=== PATIENT | male | born 1995 | race African-American/Black ===

== ENCOUNTER 2019-01-28 20:53 | Emergency (ER) | payer OTHER ==
[~2019-01-28] VITALS: Ht 177.8 cm; Wt 92.7 kg
[2019-01-28 21:58] LABS: BASO % 0.7 % (0.0-1.0); EOS # 0.1 10^3/uL (0.0-0.5); EOS % 2.1 % (0.0-3.0); HEMATOCRIT 47.1 % (42.0-52.0); HEMOGLOBIN 16.1 g/dl (13.5-17.5); LYMPH % 34.4 % (24.0-44.0); MEAN CORPUSCULAR HEMOGLOBIN 30.1 pg (27.0-33.0); MEAN CORPUSCULAR HGB CONC 34.2 g/dl (32.0-36.5); MONO # 0.5 10^3/uL (0.0-0.8); MONO % 8.7 % (0.0-5.0); NEUTROPHILS # 3.1 10^3/uL (1.5-8.5); NEUTROPHILS % 53.9 % (36.0-66.0); PLATELET COUNT, AUTOMATED 249 10^3/uL (150-450); RED BLOOD COUNT 5.35 10^6/uL (4.30-6.10); WHITE BLOOD COUNT 5.7 10^3/uL (4.0-10.0)
[2019-01-28] MEDS ORDERED: KETOROLAC 30 MG/ML VIAL (J1885) IV ONE (22:15)
[2019-01-28] MEDS ORDERED: NS 1,000 ML IV ONE (22:15)
[2019-01-28] MEDS ORDERED: TAMSULOSIN 0.4 MG CAP PO ONE (22:15)
--- NOTE | 2019-01-28 23:11 | REPVR ---
PROCEDURE INFORMATION: Exam: CT Abdomen And Pelvis Without Contrast Exam date and time: 01/28/2019 10:27 PM Clinical history: 23 years old, male; Other: Hematuria; Additional info: Hematuria, dysuria TECHNIQUE: Imaging protocol: Computed tomography of the abdomen and pelvis without contrast. Radiation optimization: All CT scans at this facility use at least one of these dose optimization techniques: automated exposure control; mA and/or kV adjustment per patient size (includes targeted exams where dose is matched to clinical indication); or iterative reconstruction. COMPARISON: No relevant prior studies available. FINDINGS: Limited evaluation without enteric or IV contrast. Lungs: No suspicious mass or airspace process in the visualized lung bases. Liver: Noncontrast liver shows no obvious lesion. Gallbladder and bile ducts: Gallbladder is contracted and not well evaluated. Pancreas: Noncontrast pancreas shows no obvious mass or adjacent fluid. Spleen: Noncontrast spleen shows no obvious focal deformity. Adrenals: Adrenal glands are normal in appearance. Kidneys and ureters: Kidneys show no stone or hydronephrosis. Stomach and bowel: No evidence of small bowel obstruction. No evidence of acute diverticulitis. Appendix: Normal caliber appendix is identified, with no adjacent inflammation. Intraperitoneal space: No pneumoperitoneum. Vasculature: No aortic aneurysm. Lymph nodes: No bulky lymphadenopathy. Bladder: Urinary bladder appears normal. Bones/joints: Bony structures show no acute fracture or destructive process. Soft tissues: Fat containing umbilical hernia is present. No effacement of normal fat planes in the ischiorectal fossa. IMPRESSION: No evidence of renal stone or obstruction. No noncontrast CT explanation for hematuria Electronically signed by: Drake Reid On 01/28/2019 23:10:44 PM
[2019-01-28 23:40] VITALS: BP 165/73
[2019-01-29 00:44] LABS: CHLAMYDIA DNA AMPLIFICATION NEGATIVE (NEGATIVE); GC DNA AMPLIFICATION NEGATIVE (NEGATIVE)
== END 2019-01-28 23:49 | disposition home or self-care (01) ==
LOC: M ED 20:53
DX: R31.21 Asymptomatic microscopic hematuria (principal)
CPT/HCPCS: 74176; 80047; 81001; 85025; 87661; 96361; 96374; 99284; J1885

== ENCOUNTER 2019-05-28 06:44 | Emergency (ER) | payer OTHER ==
[~2019-05-28] VITALS: Ht 180.3 cm; Wt 88.6 kg
[2019-05-28 07:28] LABS: APPEARANCE, URINE CLEAR (CLEAR); BACTERIA, URINE AUTO NEGATIVE (NEGATIVE); BILIRUBIN, URINE AUTO NEGATIVE (NEGATIVE); BLOOD, URINE BLOOD 1+ (NEGATIVE); COLOR, URINE YELLOW (YELLOW); GLUCOSE, URINE (UA) AUTO NEGATIVE (NEGATIVE); KETONE, URINE AUTO NEGATIVE (NEGATIVE); LEUKOCYTE ESTERASE, URINE AUTO NEGATIVE (NEGATIVE); NITRITE, URINE AUTO NEGATIVE (NEGATIVE); PROTEIN, URINE AUTO NEGATIVE (NEGATIVE); RBC, URINE AUTO 6 /HPF (0-3); SPECIFIC GRAVITY URINE AUTO 1.014 (1.002-1.035); SQUAMOUS EPITHELIAL CELL UR AU 0 /HPF (0-6); UROBILINOGEN, URINE AUTO 0.2 mg/dL (0.0-2.0); WBC, URINE AUTO 0 /HPF (0-3)
[2019-05-28 11:02] LABS: BASO % 0.5 % (0.0-1.0); EOS # 0.1 10^3/uL (0.0-0.5); EOS % 1.9 % (0.0-3.0); HEMATOCRIT 44.7 % (42.0-52.0); HEMOGLOBIN 15.4 g/dl (13.5-17.5); LYMPH # 1.2 10^3/uL (1.5-5.0); LYMPH % 31.5 % (24.0-44.0); MEAN CORPUSCULAR HEMOGLOBIN 30.4 pg (27.0-33.0); MEAN CORPUSCULAR HGB CONC 34.5 g/dl (32.0-36.5); MEAN CORPUSCULAR VOLUME 88.2 fl (80.0-96.0); MONO # 0.4 10^3/uL (0.0-0.8); NEUTROPHILS # 2.1 10^3/uL (1.5-8.5); NEUTROPHILS % 56.1 % (36.0-66.0); PLATELET COUNT, AUTOMATED 253 10^3/uL (150-450); RED BLOOD COUNT 5.07 10^6/uL (4.30-6.10); WHITE BLOOD COUNT 3.7 10^3/uL (4.0-10.0)
[2019-05-28 11:22] LABS: BLOOD UREA NITROGEN 15 MG/DL (7-18); CALCIUM LEVEL 9.6 MG/DL (8.5-10.1); CARBON DIOXIDE LEVEL 31 MEQ/L (21-32); CHLORIDE LEVEL 104 MEQ/L (98-107); CREATININE FOR GFR 1.01 MG/DL (0.70-1.30); GLOMERULAR FILTRATION RATE > 60.0 (>60); GLUCOSE, FASTING 86 MG/DL (70-100); POTASSIUM SERUM 4.4 MEQ/L (3.5-5.1); SODIUM LEVEL 140 MEQ/L (136-145)
[2019-05-28] MEDS ORDERED: NS 1,000 ML IV ONE (11:45)
[2019-05-28] MEDS ORDERED: ISOVUE-370 76% 100ML VIAL (Q9967) As Ordered ONE (12:00)
--- NOTE | 2019-05-28 12:51 | REP ---
Clinical: Persistent hematuria. Technique: Axial precontrast, contrast enhanced, and delayed images of the abdomen and pelvis using 100 ml Isovue 370 intravenous contrast material with coronal and sagittal re-formations. Volume rendered 3-D urogram obtained. Findings: Urinary tract system including kidneys, ureters, and bladder are normal. Liver, spleen, pancreas, gallbladder, bilateral adrenal glands are normal. The enteric system is without obstruction or acute inflammatory process. Eventration of the rectus sheath at the periumbilical level noted without herniation. Pelvis demonstrates normal bladder and age appropriate prostate/seminal vesicles. No ascites. No free air. No adenopathy. Abdominal aorta and vasculature normal. Surrounding musculoskeletal structures are intact. Lung bases are clear. Impression: No acute abdominopelvic pathology appreciated. Electronically Signed by Sam Long MD 05/28/2019 12:43 P
[2019-05-28 14:24] VITALS: BP 133/84
== END 2019-05-28 14:27 | disposition home or self-care (01) ==
LOC: M ED 06:44
DX: R31.29 Other microscopic hematuria (principal)
CPT/HCPCS: 74178; 80048; 81001; 85025; 87086; 99284; Q9967

== ENCOUNTER 2019-08-23 22:23 | Emergency (ER) | payer OTHER ==
[~2019-08-23] VITALS: Ht 177.8 cm; Wt 90.2 kg
[2019-08-23] MEDS ORDERED: PERC5TAB12 PO (22:37)
[2019-08-23] MEDS ORDERED: MORPHINE 4 MG/ML 1ML VIAL/SYRINGE (J2270) IV ONE ×2 (23:00→23:30)
[2019-08-23] MEDS ORDERED: NS 1,000 ML IV ONE (23:00)
[2019-08-23] MEDS ORDERED: ONDANSETRON 4MG/2ML VIAL IV ONE (23:00)
[2019-08-23 23:07] LABS: BASO % 0.2 % (0.0-1.0); EOS % 0.1 % (0.0-3.0); HEMATOCRIT 42.1 % (42.0-52.0); HEMOGLOBIN 14.6 g/dl (13.5-17.5); LYMPH # 1.2 10^3/uL (1.5-5.0); LYMPH % 12.9 % (24.0-44.0); MEAN CORPUSCULAR HEMOGLOBIN 30.4 pg (27.0-33.0); MEAN CORPUSCULAR HGB CONC 34.7 g/dl (32.0-36.5); MEAN CORPUSCULAR VOLUME 87.5 fl (80.0-96.0); MONO # 0.7 10^3/uL (0.0-0.8); MONO % 7.9 % (0.0-5.0); NEUTROPHILS # 7.1 10^3/uL (1.5-8.5); NEUTROPHILS % 78.6 % (36.0-66.0); PLATELET COUNT, AUTOMATED 239 10^3/uL (150-450); RED BLOOD COUNT 4.81 10^6/uL (4.30-6.10); WHITE BLOOD COUNT 9.1 10^3/uL (4.0-10.0)
[2019-08-23 23:24] LABS: ALBUMIN 4.1 GM/DL (3.2-5.2); BILIRUBIN,DIRECT 0.1 MG/DL (0.0-0.2); BILIRUBIN,TOTAL 0.3 MG/DL (0.2-1.0); TOTAL PROTEIN 8.2 GM/DL (6.4-8.2)
--- NOTE | 2019-08-23 23:52 | REPVR ---
PROCEDURE INFORMATION: Exam: CT Abdomen And Pelvis Without Contrast Exam date and time: 08/23/2019 11:20 PM Age: 24 years old Clinical indication: Abdominal pain; Additional info: Left flank pain, hematuria, cystoscopy yesterday TECHNIQUE: Imaging protocol: Computed tomography of the abdomen and pelvis without contrast. Radiation optimization: All CT scans at this facility use at least one of these dose optimization techniques: automated exposure control; mA and/or kV adjustment per patient size (includes targeted exams where dose is matched to clinical indication); or iterative reconstruction. COMPARISON: CT ABD PELVIS W/O CONTRAST 01/28/2019 10:25 PM FINDINGS: Limitations: Examination is limited by motion artifact. Liver: Normal. No mass. Gallbladder and bile ducts: Normal. No calcified stones. No ductal dilation. Pancreas: Normal. No ductal dilation. Spleen: Normal. No splenomegaly. Adrenals: Normal. No mass. Kidneys and ureters: No right hydronephrosis. Mild left hydronephrosis. No renal stones. Stomach and bowel: Moderate stool in the colon. No abnormal bowel dilatation. No abnormal bowel wall thickening. Negative for colonic diverticulitis. Appendix: Appendix is normal. Intraperitoneal space: Unremarkable. No free air. No significant fluid collection. Vasculature: Unremarkable. No abdominal aortic aneurysm. Lymph nodes: Unremarkable. No enlarged lymph nodes. Bladder: Unremarkable as visualized. Reproductive: Prostate is mildly enlarged. Bones/joints: Unremarkable. No acute fracture. Soft tissues: Unremarkable. IMPRESSION: 1. Mild left hydronephrosis. Unknown etiology. Possible recently passed stone. 2. No renal stones. Electronically signed by: Yovani Gallego On 08/23/2019 23:51:33 PM
[2019-08-24 00:24] VITALS: BP 135/65
[2019-08-24] MEDS ORDERED: fentaNYL 100 MCG/2 ML INJECTION (J3010) IV ONE (00:30)
[2019-08-24] MEDS ORDERED: FLEET OIL RETENTION ENEMA PR STA (01:35)
[2019-08-24] MEDS ORDERED: NS 1,000 ML IV ONE (01:45)
[2019-08-24] MEDS ORDERED: KETOROLAC 30 MG/ML 1ML VIAL IV ONE ×2 (01:45→02:15)
[2019-08-24] MEDS ORDERED: KEFL500C17 PO (02:43)
== END 2019-08-24 03:04 | disposition home or self-care (01) ==
LOC: M ED 22:23
DX: K59.00 Constipation, unspecified (principal); N13.30 Unspecified hydronephrosis
CPT/HCPCS: 74176; 80047; 80076; 81001; 83605; 83690; 85025; 96361; 96374; 96375; 96376; 99284; J1885; J2270; J2405; J3010

== ENCOUNTER 2020-01-07 07:58 | Emergency (ER) | payer OTHER ==
[~2020-01-07] VITALS: Ht 177.8 cm; Wt 90.9 kg
[~2020-01-07 07:58] MED LIST: KEFL500C17 PO; PERC5TAB12 PO
--- NOTE | 2020-01-07 08:44 | REPVR ---
PROCEDURE INFORMATION: Exam: XR Left Ankle Exam date and time: 01/07/20 (8:22am) Age: 24 years old Clinical indication: Patient at [facility]. Twisted left ankle and it 'popped". Work-related. Initial encounter. Jumped and heard a 'pop'. TECHNIQUE: Imaging protocol: XR Left ankle Views: 3 or more views COMPARISON: No relevant prior studies available FINDINGS: Bones/joints: Unremarkable. No acute fracture nor dislocation. Soft tissues: Diffuse soft tissue swelling at the left ankle, most notably at the lateral malleolus. IMPRESSION: No acute fracture. No dislocation. Soft tissue swelling at the left ankle, most notably at the lateral malleolus. Electronically signed by: Suzan De La Cruz On 01/07/2020 08:44:00 AM
[2020-01-07 09:41] VITALS: BP 143/66
== END 2020-01-07 09:35 | disposition home or self-care (01) ==
LOC: M ED 07:58
DX: S93.402A Sprain of unspecified ligament of left ankle, initial encounter (principal); X58.XXXA Exposure to other specified factors, initial encounter; Y92.89 Other specified places as the place of occurrence of the external cause; Y93.89 Activity, other specified; Y99.1 Military activity

== ENCOUNTER 2020-02-06 00:29 | Emergency (ER) | payer OTHER ==
[~2020-02-06] VITALS: Ht 170.2 cm; Wt 89.9 kg
--- NOTE | 2020-02-06 04:12 | REPVR ---
PROCEDURE INFORMATION: Exam: US Retroperitoneal Limited, Kidneys Exam date and time: 02/06/2020 3:54 AM Age: 24 years old Clinical indication: Other: Hematuria; Additional info: Hematuria, prior history of cyst rupture TECHNIQUE: Imaging protocol: Real-time ultrasound of the retroperitoneum with image documentation. Examination was focused on the kidneys. COMPARISON: CT ABD PELVIS W/O CONTRAST 08/23/2019 11:17 PM FINDINGS: Right kidney: The right kidney is normal in size and echogenicity with no hydronephrosis or stones identified. The right kidney measures 11.3 cm in length. Left kidney: The left kidney is normal in size and echogenicity with no stones or hydronephrosis identified. The left kidney measures 11.1 cm in length. Bladder: The bladder appears normal. No bladder stones or wall thickening identified. Ureteral jets were sought but not identified. IMPRESSION: Normal appearance of the kidneys and bladder. No hydronephrosis or stones identified. Electronically signed by: Hortencia Gallego On 02/06/2020 04:12:21 AM
[2020-02-06 04:34] LABS: BLOOD UREA NITROGEN 14 MG/DL (7-18); CALCIUM LEVEL 9.6 MG/DL (8.5-10.1); CARBON DIOXIDE LEVEL 31 MEQ/L (21-32); CHLORIDE LEVEL 104 MEQ/L (98-107); CREATININE FOR GFR 1.05 MG/DL (0.70-1.30); GLOMERULAR FILTRATION RATE > 60.0 (>60); GLUCOSE, FASTING 89 MG/DL (70-100); POTASSIUM SERUM 4.2 MEQ/L (3.5-5.1); SODIUM LEVEL 138 MEQ/L (136-145)
[2020-02-06 05:07] VITALS: BP 132/68
== END 2020-02-06 05:09 | disposition home or self-care (01) ==
LOC: M ED 00:29
DX: R31.9 Hematuria, unspecified (principal)

== ENCOUNTER 2020-11-29 23:11 | Emergency (ER) | payer OTHER ==
[~2020-11-29] VITALS: Ht 177.8 cm; Wt 91.9 kg
[2020-11-29] MEDS ORDERED: LEXA1TAB2 PO (23:34)
[2020-11-30 02:22] VITALS: BP 120/72
[2020-11-30 03:50] LABS: GC DNA AMPLIFICATION NEGATIVE (NEGATIVE)
[2020-11-30 09:15] LABS: HEPATITIS C VIRUS ABY INDEX 0.1 INDEX (<0.8); HIV 1&2 SCREEN CENTAUR NEGATIVE (NEGATIVE)
== END 2020-11-30 02:37 | disposition home or self-care (01) ==
LOC: M ED 23:11
DX: R21 Rash and other nonspecific skin eruption (principal)

== ENCOUNTER → 2020-11-30 | Outpatient (REF) ==
[~2020-11-30] MED LIST changes: +LEXA1TAB2 PO
--- NOTE | 2020-11-30 21:45 | REP ---
INDICATION: SOB COMPARISON: None. TECHNIQUE: PA and lateral. FINDINGS: The mediastinum and cardiac silhouette are normal. The lung resendiz are clear and without acute consolidation, effusion, or pneumothorax. The skeletal structures are intact and normal. IMPRESSION: No acute cardiopulmonary process. <Electronically signed by Sam Long > 11/30/20 [id number]
== END ==
LOC: M PLAIMG 15:28
PROVIDERS: ATTEND Internal Medicine
DX: R06.02 Shortness of breath (principal)

== ENCOUNTER 2021-05-17 07:26 | Emergency (ER) | payer OTHER ==
[~2021-05-17] VITALS: Ht 177.8 cm; Wt 98.8 kg
[2021-05-17] MEDS ORDERED: RABIES VACCINE HUMAN 2.5 INTERNATIONAL UNITS/ML VIAL (90675) IM ONE (08:10)
[2021-05-17] MEDS ORDERED: RABIES IMMUNE GLOBULIN 1500 INTERNATIONAL UNIT/5ML VIAL (90375) IM ONE (08:10)
[2021-05-17 08:42] VITALS: BP 134/78
== END 2021-05-17 08:43 | disposition home or self-care (01) ==
LOC: M ED 07:26
DX: Z23 Encounter for immunization (principal); Z20.3 Contact with and (suspected) exposure to rabies